=== PATIENT | male | born 1980 | race Caucasian/White ===

== ENCOUNTER → 2017-03-15 | Outpatient (CLI) | payer BC ==
[2017-03-15 18:05] LABS: BASO % 0.4 %; BASO ABS # 0.03 K/uL (0-0.2); COMPLETE YES; EOS % 1.2 %; HEMATOCRIT 43.4 % (42-52); LYMPH ABS # 2.06 K/uL (1.2-3.4); MEAN CELL VOLUME 87.1 fL (80-100); MEAN CORPUSCULAR HEMOGLOBIN 30.7 pg (25-34); MEAN CORPUSCULAR HGB CONC 35.3 g/dl (32-36); MEAN PLATELET VOLUME 10.7 fL (7.4-10.4); MONO % 13.3 %; NEUT % 57.1 %; PLATELET COUNT 240 K/uL (130-400); RED BLOOD COUNT 4.98 M/uL (4.7-6.1); WHITE BLOOD COUNT 7.37 K/uL (4.8-10.8)
== END | disposition home or self-care (01) ==
LOC: C.LABMFLN 15:41
PROVIDERS: ATTEND Family Medicine
DX: R22.1 Localized swelling, mass and lump, neck (principal)

== ENCOUNTER → 2017-05-14 | Outpatient (CLI) | payer BC ==
--- NOTE | 2017-05-14 08:04 | DIAGNOSTIC IMAGING REPORT ---
(BARIUM SWALLOW) ESOPHAGUS CLINICAL HISTORY: K21.9 GERD without [id number] MALE WITH LIKELY LARYN COMPARISON STUDY: None FLUOROSCOPY TIME: 1.1 minutes. FINDINGS: Is a trace amount of aspiration with thin liquids. There is no significant cough reflex. The esophagus is normal in course and caliber. Gastroesophageal junction is normal. Patient ingested the barium tablet easily passed are generally to the stomach. IMPRESSION: Trace intermittent aspiration with thin liquids. Study is otherwise normal. The above report was generated using voice recognition software. It may contain grammatical, syntax or spelling errors. Electronically signed by: Larry Fernández M.D. 05/14/2017 8:02 AM Dictated Date/Time: 05/14/2017 7:59 AM
== END | disposition home or self-care (01) ==
LOC: C.RAD 07:26
DX: K21.9 Gastro-esophageal reflux disease without esophagitis (principal)